=== PATIENT | female | born 1995 | race African-American/Black ===

== ENCOUNTER 2021-05-03 07:45 | Inpatient (IN) | payer OTHER ==
[2021-05-03] MEDS ORDERED: OXYTOCIN 30 UNITS in 0.9% NS 30 UNIT/500 ML INFUS.BAG IVPB ONE (08:47)
[2021-05-03] MEDS: DEXTROSE 5%-LACTATED RINGERS 1,000 ML IV SCH (09:00)
[2021-05-03 09:57] VITALS: BMI 39.2
[2021-05-03] MEDS: OXYTOCIN 30 UNITS in 0.9% NS 30 UNIT/500 ML INFUS.BAG IVPB SCH (10:00)
[2021-05-03] MEDS ORDERED: PROMETHAZINE HCL 25 MG/1 ML VIAL IVPB ONE (13:00)
[2021-05-03] MEDS ORDERED: BUTORPHANOL TARTRATE 2 MG/ML VIAL IVPB ONE (13:00)
[2021-05-03] MEDS ORDERED: BUTORPHANOL TARTRATE 2 MG/ML VIAL ONE (16:42)
[2021-05-03] MEDS ORDERED: PROMETHAZINE HCL 25 MG/1 ML VIAL ONE (16:43)
[2021-05-03] MEDS ORDERED: FENTANYL/BUPIVACAINE/NS/PF - PCEA - 50 ML DISP.SYRIN EP ONE (19:25)
[2021-05-03] MEDS ORDERED: NALOXONE HCL 0.4 MG/ML VIAL IVPUSH PRN (19:33)
[2021-05-03] MEDS ORDERED: BUPIVACAINE HCL/PF 0.25% (2.5MG/ML) 10 ML VIAL ONE (19:36)
[2021-05-03] MEDS ORDERED: FENTANYL/BUPIVACAINE/NS/PF - PCEA - 50 ML DISP.SYRIN EP SCH (19:45)
[2021-05-03] MEDS ORDERED: OXYTOCIN 20 UNITS in 0.9% NS 20 UNIT/1,000 ML INFUS.BAG IV ONE (23:29)
[2021-05-03] MEDS ORDERED: LIDOCAINE HCL 1% PRESERVATIVE FREE - 30ML VIAL ONE (23:31)
[2021-05-04] MEDS ORDERED: oxyCODONE HCL 5 MG TABLET ONE (00:26)
[2021-05-04] MEDS ORDERED: oxyCODONE HCL 5 MG TABLET PO PRN (00:47)
[2021-05-04] MEDS ORDERED: METHYLERGONOVINE MALEATE 0.2 MG/1 ML AMP IM PRN (00:47)
[2021-05-04] MEDS ORDERED: ACETAMINOPHEN 325 MG TABLET (FP) PO PRN (00:47)
[2021-05-04] MEDS ORDERED: WITCH HAZEL 50% (TUCKS) 40 PAD/JAR PAD TP PRN (00:47)
[2021-05-04] MEDS ORDERED: BISACODYL 10 MG SUPP.RECT RC PRN (00:47)
[2021-05-04] MEDS ORDERED: BENZOCAINE 20% 57 GM BOTTLE TP PRN (00:47)
[2021-05-04] MEDS ORDERED: BENZOCAINE 28 GM HEMORRHOIDAL OINTMENT TP PRN (00:47)
[2021-05-04] MEDS ORDERED: OXYTOCIN 20 UNITS in 0.9% NS 20 UNIT/1,000 ML INFUS.BAG IV SCH (01:00)
[2021-05-04 07:11] LABS: BASO % 0.4 % (0-2.0); EOS % 0.2 % (0-4.5); HEMATOCRIT 32.5 % (32.4-45.2); HEMOGLOBIN 10.8 GM/dL (10.7-15.3); LYMPH % 9.8 % (8-40); MCH 27.8 pg (25.7-33.7); MCHC 33.2 g/dl (32.0-36.0); MEAN CELL VOLUME 83.7 fl (80-96); MEAN PLT VOLUME 9.6 fl (7.5-11.1); MONO % 5.1 % (3.8-10.2); NEUT % 84.5 % (42.8-82.8); PLATELET COUNT 169 10^3/uL (134-434); RBC 3.88 M/mm3 (3.60-5.2); WHITE BLOOD COUNT 17.6 K/mm3 (4.0-10.0)
[2021-05-04] MEDS ORDERED: DIPHTH,PERTUSS(ACELL),TET 0.5 ML DISP.SYRIN IM ONE (10:00)
[2021-05-04] MEDS: DEXTROSE 5%-LACTATED RINGERS 1,000 ML IV SCH (10:36)
[2021-05-04] MEDS: OXYTOCIN 30 UNITS in 0.9% NS 30 UNIT/500 ML INFUS.BAG IVPB SCH (10:36)
[2021-05-04] MEDS: IBUPROFEN 600 MG TABLET (FP) PO PRN (10:48)
[2021-05-04] MEDS: PRENATAL VITAMINS W/ FOLIC ACID TABLET (FP) PO SCH (10:48)
[2021-05-05] MEDS ORDERED: diphenhydrAMINE HCL 25 MG CAPSULE (FP) PO PRN (03:47)
[2021-05-05] MEDS: IBUPROFEN 600 MG TABLET (FP) PO PRN (07:21)
[2021-05-05] MEDS: PRENATAL VITAMINS W/ FOLIC ACID TABLET (FP) PO SCH (10:09)
[2021-05-05 10:32] VITALS: BP 116/74; PULSE 97; TEMP 98
[2021-05-05] MEDS ORDERED: SENNOSIDES/DOCUSATE COMBO (SENNA PLUS) TABLET (UD) PO PRN (22:00)
== END 2021-05-05 16:00 | disposition home or self-care (01) | DRG 807 ==
LOC: JLDR 07:45 → J3W 05-04 05:37
PROVIDERS: ADMIT Obstetrics & Gynecology; ATTEND Obstetrics & Gynecology
PROC: 10E0XZZ Delivery of Products of Conception, External Approach (ICD-10-PCS; principal; 2021-05-04)
PROC: 0HQ9XZZ Repair Perineum Skin, External Approach (ICD-10-PCS; 2021-05-04)
PROC: 0W8NXZZ Division of Female Perineum, External Approach (ICD-10-PCS; 2021-05-04)
DX: O70.0 First degree perineal laceration during delivery (principal); Z3A.40 40 weeks gestation of pregnancy; Z37.0 Single live birth
CPT/HCPCS: 36415; 59409; 85025; 90715